=== PATIENT | female | born 1985 | race African-American/Black ===

== ENCOUNTER 2020-02-02 15:59 | Emergency (ER) | payer SELFPAY ==
[2020-02-03 15:22] LABS: SARS-CoV-2 MS2 Positive; SARS-CoV-2 N Gene Negative; SARS-CoV-2 S Gene Negative; SARS-CoV-2 by NAA Not Detected (NotDetected); SARS-CoV-2 orf1ab Negative
== END 2020-02-02 16:43 | disposition home or self-care (01) ==
LOC: ERS 15:59
DX: Z20.828 Contact with and (suspected) exposure to other viral communicable diseases (principal)
CPT/HCPCS: 87635; 99283; U0003

== ENCOUNTER 2024-09-27 10:23 | Outpatient (CLI) | payer BC | END 2024-09-27 10:24 | disposition home or self-care (01) | LOC: BICMAMMO 10:23 | PROVIDERS: ATTEND Family Medicine | DX: Z12.31 Encounter for screening mammogram for malignant neoplasm of breast (principal) | CPT/HCPCS: 77063; 77067 ==